=== PATIENT | male | born 1965 | race Caucasian/White ===

== ENCOUNTER 2023-09-25 22:04 | Emergency (ER) | payer BC ==
[2023-09-25] MEDS: Ondansetron 4 MG/2 ML SDV IVPUSH ONE (22:50)
[2023-09-25] MEDS: Ketorolac 30 MG/ML SDV IVPUSH ONE (22:50)
[2023-09-25] MEDS: Sodium Chloride 0.9% 10 ML Syringe FLUSH PRN (22:50)
[2023-09-25 22:53] LABS: BASOPHILS ABSOLUTE AUTO 0.1 K/mm3 (0.0-0.2); BASOPHILS PERCENT AUTO 0.7 % (0.0-1.0); EOSINOPHILS ABSOLUTE AUTO 0.1 K/mm3 (0.0-0.4); EOSINOPHILS PERCENT AUTO 0.4 % (0.0-6.0); HEMATOCRIT 44.2 % (42.0-52.0); HEMOGLOBIN 15.3 gm/dl (14.0-18.0); IMMATURE GRAN ABSOLUTE AUTO 0.07 K/mm3 (0.00-0.05); IMMATURE GRAN PERCENT AUTO 0.4 % (0.0-0.4); LYMPHOCYTES ABSOLUTE AUTO 1.6 K/mm3 (1.0-4.8); LYMPHOCYTES PERCENT AUTO 8.1 % (24.0-44.0); MEAN CORPUSCULAR HEMOGLOBIN 29.3 pg (28.0-32.0); MEAN CORPUSCULAR HGB CONC 34.6 g/dl (32.0-36.0); MEAN CORPUSCULAR VOLUME 84.5 fl (83.0-99.0); MEAN PLATELET VOLUME 10.3 fl (9.4-12.4); MONOCYTES ABSOLUTE AUTO 0.9 K/mm3 (0.0-0.8); MONOCYTES PERCENT AUTO 4.4 % (0.0-8.0); NEUTROPHILS ABSOLUTE AUTO 16.7 K/mm3 (1.8-7.7); PLATELET COUNT,PLT 218 K/mm3 (150-400); RED BLOOD CELL COUNT 5.23 M/mm3 (4.52-5.90); WHITE BLOOD CELL COUNT,WBC 19.45 K/mm3 (3.9-11.3)
[2023-09-25 23:02] LABS: A/G RATIO 1.6 (1-2); ALBUMIN 4.5 g/dl (3.4-5.0); ANION GAP 17.8 (5-15); BILIRUBIN TOTAL 0.8 mg/dL (0.2-1.0); BUN/CREATININE RATIO 12.7 (14-18); CALCIUM 9.2 mg/dL (8.5-10.1); CREATININE 1.1 mg/dL (0.7-1.3); EST CRCL DRUG DOSING (CG) 79.22 mL/min; MAGNESIUM 1.8 mg/dL (1.8-2.4); POTASSIUM,K 3.8 mEq/L (3.5-5.1); PROTEIN TOTAL,TP 7.3 g/dl (6.4-8.2)
[2023-09-25 23:10] LABS: CORONAVIRUS COVID-19 NAA NEGATIVE (NEGATIVE); INFLUENZA A NAA NEGATIVE (NEGATIVE); RESPIRATORY SYNCYTIAL VIR NAA NEGATIVE (NEGATIVE)
[2023-09-25] MEDS: Iopamidol 612 MG/ML 100 ML Bottle IVPUSH ONE (23:27)
[2023-09-25] MEDS: Sodium Chloride 0.9% 1,000 ML IV ONE (23:31)
[2023-09-25] MEDS: Sodium Chloride 0.9% 10 ML Syringe FLUSH ONE (23:31)
[2023-09-26] MEDS: Prochlorperazine 10 MG/2 ML SDV IVPUSH ONE (00:06)
[2023-09-26] MEDS ORDERED: Naloxone 0.4 MG/ML SDV IVPUSH PRN (00:20)
[2023-09-26] MEDS: HYDROmorphone 1 MG/ML Syringe IVPUSH ONE (00:40)
== END 2023-09-26 00:56 | disposition home or self-care (01) ==
LOC: JD.ED 22:04
DX: N13.2 Hydronephrosis with renal and ureteral calculous obstruction (principal)
CPT/HCPCS: 0241U; 36415; 74177; 80053; 83690; 83735; 85025; 96361; 96374; 96375; 99284; J0780; J1170; J1885; J2405; J3490; J7030; Q9967